=== PATIENT | male | born 1950 | race Caucasian/White ===

== ENCOUNTER → 2017-03-17 | Outpatient (CLI) | payer MEDICARE, BC ==
[~2017-03-17] MED LIST: ALLE25CA OR; ASPI325T OR; AVAP150T OR; CLAR5CHW OR; FISH300C2 OR; HYDR25TA6 OR; LOPI600T OR; MULTIVIT; OMNARIS NASAL SPRAY; PERC5TAB12 PO; PERC5TAB8 OR; PRED5TAB OR; SYMB80AE IN; TAMS0.4C2 PO; VENTAER IN; [UNRECOGNIZED DRUG - OTHER]
[2017-03-17 13:31] LABS: CALCIUM LEVEL 9.1 MG/DL (8.8-10.2); CREATININE FOR GFR 1.29 MG/DL (0.70-1.30); GLOMERULAR FILTRATION RATE 59.5 (>49); POTASSIUM SERUM 4.5 MEQ/L (3.5-5.1)
== END ==
LOC: M SMT 10:05
PROVIDERS: ATTEND Urology
DX: R97.20 Elevated prostate specific antigen [PSA] (principal)
CPT/HCPCS: 36415; 80048; G0463

== ENCOUNTER → 2017-04-27 | Outpatient (CLI) | payer MEDICARE, BC ==
--- NOTE | 2017-04-27 15:20 | REP ---
MULTIPARAMETRIC PROSTATE MRI STUDY WITH PRE AND POST GADOLINIUM ENHANCED IMAGING: HISTORY: Elevated prostate-specific antigen. TECHNIQUE: Using a phased array surface coil, small field of view imaging was acquired using T2-weighted scans in the axial, coronal, and sagittal imaging planes. Small field of view diffusion-weighted sequences are acquired. Small field of view axial T1-weighted scans are acquired dynamically after the intravenous administration of 16 mL of gadolinium. Using a large field of view, the entire pelvis to the level of the aortic bifurcation was imaged using pre-contrast axial T1 and post-contrast axial T1 fat-saturation images. FINDINGS: Image quality is satisfactory although there is some image degradation on the diffusion weighted sequences. There is no MR evidence of pelvic or inguinal adenopathy. No suspicious bone lesion is seen. Seminal vesicles appear symmetrical. Prostate measures 5.2 x 3.7 x 4.0 cm for a total volume of 40 mL. There are findings of benign prostatic hypertrophy. There are three areas of abnormal signal intensity, contrast enhancement and diffusion signal in the prostate identified as regions of interest. First in the left transitional zone extending from the base to the apex is an area of heterogenous low and high signal which demonstrates type 3 enhancement. The area measures 2.6 x 1.1 x 2.6 cm for a total volume of 4.72 mL. Overall level of suspicion is 3 out of 5 with clinically significant cancer equivocal. Second in the right transitional zone extending from the base to the apex is a heterogeneous area of low and high signal on T2 demonstrating type 3 enhancement characteristics. The area measures 2.1 x 1.3 x 2.9 cm for a total volume of 4.93 mL. Overall level of suspicion is 3 out of 5 with clinically significant cancer equivocal. Finally in the peripheral zone bilaterally, in the medial aspect extending from the base to the apex, there are geographic areas of somewhat low signal on T2-weighted images. These areas demonstrate mixed enhancement predominantly type 2. This may represent prostatitis. Overall level of suspicion is 2 out of 5 with clinically significant cancer unlikely to be present. IMPRESSION: Three focal abnormalities seen in the prostate identified as regions of interest in the [employer] software for MR ultrasound fusion utilization. Signed by Meir Delaney MD 04/28/2017 05:52 P
--- NOTE | 2017-04-27 17:12 | REP ---
ORBITS FOR MRI CLEARANCE: 04/27/2017: Findings: Santos and lateral view of the orbits provided. There is no radiopaque/metallic foreign body visible about either orbit. This mucosal thickening in the bilateral maxillary sinuses. There is deviation of nasal septum towards the left. Frontal sinuses were clear. Sphenoid sinuses are clear. Impression: 1. No metallic foreign body about the orbits. The patient cleared for MRI. Bilateral mucosal thickening/air fluid levels in the maxillary sinuses suggesting acute and chronic sinusitis. Signed by Manny Marie MD 04/27/2017 08:14 P
== END ==
LOC: M RAD 11:05
PROVIDERS: ATTEND Urology
DX: R97.20 Elevated prostate specific antigen [PSA] (principal); J34.2 Deviated nasal septum
CPT/HCPCS: 70200; 72197; A9576

== ENCOUNTER → 2017-09-01 | Outpatient (CLI) | payer MEDICARE, BC ==
--- NOTE | 2017-09-01 13:20 | REP ---
Chest x-ray: Two views. History: Cough. Comparison study: October 05, 2012. Findings: The lungs are well inflated and clear. Pleural angles are sharp. No infiltrate is seen. Heart is not enlarged. Pulmonary vasculature is not increased. No bony abnormality is seen. No change from comparison study. Impression: No active disease. Signed by Justino Russell MD 09/01/2017 04:08 P
[2017-09-01 14:33] LABS: BASO % 0.3 % (0.0-1.0); EOS # 0.1 10^3/uL (0.0-0.50); EOS % 1.2 % (0.0-3.0); IMMATURE GRANULOCYTE % 0.4 % (0-0); LYMPH # 0.8 10^3/uL (1.5-4.5); LYMPH % 8.3 % (24.0-44.0); MEAN CORPUSCULAR HEMOGLOBIN 28.3 pg (27.0-33.0); MEAN CORPUSCULAR HGB CONC 32.6 g/dl (32.0-36.5); MEAN CORPUSCULAR VOLUME 86.8 fl (80.0-96.0); MONO # 0.8 10^3/uL (0.0-0.8); MONO % 7.8 % (0.0-5.0); NEUTROPHILS # 8.1 10^3/uL (1.8-7.7); PLATELET COUNT, AUTOMATED 252 10^3/uL (150-450); RED CELL DISTRIBUTION WIDTH 13.1 % (11.5-14.5); WHITE BLOOD COUNT 9.9 10^3/uL (4.0-10.0)
== END ==
LOC: M WUC 11:53
PROVIDERS: ATTEND Physician Assistant
DX: R05 Cough (principal)

== ENCOUNTER → 2018-09-14 | Outpatient (CLI) | payer MEDICARE, BC | LOC: M SMT 13:50 | DX: J82 Pulmonary eosinophilia, not elsewhere classified (principal); R05 Cough | CPT/HCPCS: 71046 ==

== ENCOUNTER → 2018-11-27 | Outpatient (REF) | payer MEDICARE, BC ==
[2018-11-27 17:37] LABS: FOLATE 17.7 NG/ML
== END ==
LOC: M LAB REF 16:39
PROVIDERS: ATTEND Internal Medicine
DX: R41.3 Other amnesia (principal)

== ENCOUNTER → 2019-11-22 | Outpatient (CLI) | payer MEDICARE, BC ==
--- NOTE | 2019-11-22 17:46 | REP ---
Bilateral hand series: Eight views. History: Bilateral hand pain. Pain in the right distal second metacarpal and in the left thumb base. Findings: Five views of the right hand demonstrate overall normal mineralization. There is mild osteoarthritic narrowing and spurring at the first carpometacarpal and first metacarpal phalangeal joint of the right hand. No erosive changes seen. Bones joints and soft tissues are otherwise unremarkable on the right. Left hand views demonstrate overall normal mineralization. There is first carpometacarpal joint osteoarthritis with spurring and joint space narrowing. No erosive changes seen. No acute abnormality. Impression: Osteoarthritic changes in the first carpometacarpal articulations bilaterally. Electronically Signed by Justino Russell MD 11/22/2019 05:38 P
== END ==
LOC: M WUC 16:56
PROVIDERS: ATTEND Physician Assistant
DX: M79.641 Pain in right hand (principal); M79.642 Pain in left hand

== ENCOUNTER → 2020-02-13 | Outpatient (REF) | payer MEDICARE, BC | LOC: M LAB REF 12:07 | PROVIDERS: ATTEND Physician Assistant | DX: R05 Cough (principal); J02.9 Acute pharyngitis, unspecified; Z11.59 Encounter for screening for other viral diseases | CPT/HCPCS: 87081; 87502; U0003 ==

== ENCOUNTER → 2020-03-19 | Outpatient (CLI) | payer MEDICARE, BC ==
--- NOTE | 2020-03-19 14:29 | REP ---
TWO-VIEW CHEST: 03/19/2020 INDICATION: Dyspnea. COMPARISON: 09/14/2018 FINDINGS: The lungs are clear. There is no pleural effusion or pneumothorax. The cardiac silhouette is normal in size. Minimal discoid atelectasis is noted in the left lung base. IMPRESSION: Clear lungs. Electronically Signed by Mauro Berkowitz DO 03/21/2020 08:39 A
== END ==
LOC: M WUC 11:52
PROVIDERS: ATTEND Internal Medicine Pulmonary Disease
DX: J82 Pulmonary eosinophilia, not elsewhere classified (principal)

== ENCOUNTER 2021-02-24 13:07 | Observation (INO) | payer MEDICARE, BC ==
[~2021-02-24] VITALS: Ht 177.8 cm; Wt 81.5 kg
[2021-02-24] MEDS ORDERED: ISOVUE-370 76% 100ML VIAL As Ordered ONE (13:56)
[2021-02-24 14:01] LABS: BASO % 0.5 % (0.0-1.0); EOS # 0.3 10^3/uL (0.0-0.5); EOS % 3.5 % (0.0-3.0); HEMATOCRIT 42.7 % (42.0-52.0); HEMOGLOBIN 13.9 g/dl (13.5-17.5); LYMPH # 1.3 10^3/uL (1.5-5.0); LYMPH % 16.5 % (24.0-44.0); MEAN CORPUSCULAR HEMOGLOBIN 29.2 pg (27.0-33.0); MEAN CORPUSCULAR HGB CONC 32.6 g/dl (32.0-36.5); MEAN CORPUSCULAR VOLUME 89.7 fl (80.0-96.0); MONO # 0.4 10^3/uL (0.0-0.8); MONO % 5.7 % (2.0-8.0); NEUTROPHILS # 5.7 10^3/uL (1.5-8.5); NEUTROPHILS % 73.4 % (36.0-66.0); PLATELET COUNT, AUTOMATED 302 10^3/uL (150-450); RED BLOOD COUNT 4.76 10^6/uL (4.30-6.10); WHITE BLOOD COUNT 7.8 10^3/uL (4.0-10.0)
--- NOTE | 2021-02-24 14:39 | REP ---
INDICATION: CVA. COMPARISON: None. TECHNIQUE: Helical scanning is acquired. 5 mm axial images were reformatted. Coronal MPR images were generated. FINDINGS: Digital preliminary [employer] portal developer radiograph is unremarkable. On bone window settings the bony calvarium is intact. There are mucosal changes in the ethmoid and for maxillary sinuses bilaterally. Vascular calcification is observed in the distal vertebral and distal internal carotid arteries bilaterally. On soft tissue window settings there is generalized volume loss. There is no evidence of intracranial hemorrhage. No mass, extra-axial fluid collection or midline shift is seen. There is focal area of low signal intensity in the anterior limb of the right internal capsule which may be a lacunar in infarct, possibly recent. There is a 2nd focus of low density in the subinsular white matter on the right which similarly could be a small lacunar infarct. Mild small vessel changes are present. IMPRESSION: There is no evidence of intracranial hemorrhage. 2 areas of low density on the right may reflect recent lacunar infarcts, anterior limb of the internal capsule and subinsular cortex respectively. Vascular calcification, generalized volume loss, and small vessel changes are noted.. <Electronically signed by Stanley Russell > 02/24/21 [id number]
--- NOTE | 2021-02-24 14:45 | REP ---
INDICATION: CVA. COMPARISON: None. TECHNIQUE: CT contrast dose: 100 ml of intravenous Isovue 370. CT technique: Helical scanning is acquired. 2 mm axial images are reformatted. Maximal intensity projection and multiplanar re-formation images are generated along with 3-D surface rendered color imaging which is viewed rotational. FINDINGS: The distal vertebral arteries are patent bilaterally. The left distal vertebral artery is quite small compared to the right but no focal high-grade stenosis is seen. The right vertebral artery is heavily calcified at the level of the foramen magnum and may be somewhat narrowed in this location. Basilar artery is tortuous but widely patent. Posterior cerebral and superior cerebellar vessels are unremarkable bilaterally. The carotid siphons are calcified bilaterally left more so than right. There is narrowing of the left internal carotid artery at the level of the calcific plaquing. The left middle and anterior cerebral arteries are intact bilaterally. No vessel cutoff is seen. No evidence of moreno aneurysm or arteriovenous malformation. Dural sinuses are intact. No venous abnormality is noted. IMPRESSION: There is heavy vascular calcification in the carotid siphons bilaterally, left more so than right. Heavy vascular calcification in the distal vertebral artery on the right which is dominant cyst in size over the left. Otherwise negative. <Electronically signed by Stanley Russell > 02/24/21 [id number]
--- NOTE | 2021-02-24 14:47 | REP ---
INDICATION: CVA COMPARISON: None. TECHNIQUE: Contrast enhancement dose is 100 mL of intravenous Isovue 370. Helical scanning is acquired. 2 mm axial images are re-formatted. Coronal and sagittal MPR images are generated. Coronal and sagittal MIP and oblique MPR images are generated. 3D surface rendered images are generated and viewed rotationally. FINDINGS: There is good opacification of the arterial tree. At the level of the arch, there is minimal vascular calcification. The left vertebral artery takes a direct origin from the transverse aorta which is a normal variant. There is some vascular calcification in the innominate. Mild vascular calcification is seen at the origin of the right vertebral artery. The right vertebral artery is larger than the left throughout the vertebral artery course. No vertebral artery stenosis or occlusion is seen. The distal right vertebral artery is heavily calcified at the level of the foramen magnum. The common carotid arteries are widely patent bilaterally. There is calcific plaquing at the origin of the internal carotid on each side mild in degree. No high-grade stenosis is seen. The cervical segments of the ICAs are unremarkable. Curved multiplanar re-formation and 3D surface rendered images show no additional finding. IMPRESSION: Moderate calcific plaquing at the origins of the internal carotid arteries bilaterally. Right dominant vertebrals. No high-grade stenosis or occlusion. <Electronically signed by Stanley Russell > 02/24/21 [id number]
[2021-02-24] MEDS ORDERED: BAYE325T16 PO (15:25)
[2021-02-24] MEDS ORDERED: CLOPIDOGREL 300 MG TAB (PLAVIX) PO STA (15:38)
[2021-02-24] MEDS ORDERED: ASPIRIN 325 MG TAB PO ONE (15:40)
[2021-02-24] MEDS ORDERED: FENO145T7 PO (16:15)
[2021-02-24] MEDS ORDERED: KP F1200 PO (16:15)
[2021-02-24] MEDS ORDERED: ALBU8.5H INH ×2 (16:15)
[2021-02-24] MEDS ORDERED: DESL1TAB3 PO (16:15)
[2021-02-24] MEDS ORDERED: IRBE150T7 PO (16:15)
[2021-02-24] MEDS ORDERED: PRED1TABL PO (16:15)
[2021-02-24] MEDS ORDERED: MUCI120T PO (16:15)
[2021-02-24] MEDS ORDERED: OMNA50SP NARES (16:15)
[2021-02-24] MEDS ORDERED: VITMTA PO (16:15)
[2021-02-24] MEDS ORDERED: EZET10TA21 PO (16:15)
[2021-02-24] MEDS ORDERED: TREL1AER INH (16:15)
--- NOTE | 2021-02-24 16:48 | HPE ---
HISTORY AND PHYSICAL DATE OF ADMISSION: 02/24/2021 CHIEF COMPLAINT: Question transient ischemic attack (TIA). PRIMARY CARE PROVIDER: Dr. 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 He is being admitted for evaluation of possible TIA. Per patient and his , he was having some trouble walking. He felt dizzy and lightheaded. His states that he became quite stressed with this. It had its origin with a severe headache. He then developed some numbness. Emergency department history is that his right arm and leg were numb, and he had trouble lifting them, and he did reportedly have some weakness of his right lower extremity on exam upon presenting to the emergency room. When I discussed the events of today, he described bilateral numbness over the thumb area of both hands. No associated weakness. In any case, he is being admitted for further evaluation. He has no past history of cardiovascular disease nor any coronary artery disease or peripheral arterial disease. He does have vascular risk factors, including hypertension, hyperlipidemia, and age. He has been heaving headaches more frequently recently. Used to have a headache a week. They have been almost daily for the last 2 weeks. Today he had a severe frontal headache preceding the event that brought him to the emergency room. He denies any photophobia, phonophobia, nausea, or vomiting with this. He has no past history of migraines. MEDICAL HISTORY: 1. Hypertension. 2. 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 Mcgarry for a period of time. 3. Renal stones requiring lithotripsy. 4. Diverticulitis requiring a sigmoid resection. 5. At one point with the renal stones he had some decreased renal function/acute kidney injury, but this has resolved. 6. He had had elevated prostate-specific antigens (PSAs) but negative prostate biopsy times two. SURGICAL HISTORY: 1. Left shoulder surgery in 1974. 2. Eye surgery in 1974. 3. Colon resection in 2003. 4. Left inguinal hernia repair in 2013. 5. Extracorporeal shockwave lithotripsy (ESWL), right kidney stone, March 2016. FAMILY HISTORY: Father of kidney failure at 67. Mother had lung cancer and at 63. A sister at 34 of suicide. Son has kidney disease secondary to medications. REVIEW OF SYSTEMS: No photophobia, phonophobia. History of migraine headaches. No rectal bleeding, epistaxis, urinary bleeding, chest pain, shortness of breath, palpitations. MEDICATIONS: - albuterol inhaler as needed - aspirin 325 mg daily - Symbicort 80/4.5 one inhalation twice a day - Benadryl as needed - gemfibrozil 600 mg daily - hydrochlorothiazide 12.5 mg daily - tamsulosin 0.4 mg daily - fish oil capsules - irbesartan 150 mg daily ALLERGIES: None known. SOCIAL HISTORY: He is retired. 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 Is now retired. Does not smoke or drink excessive alcohol. He walks for exercise. PHYSICAL EXAMINATION: Vital signs as listed, his blood pressure is currently 132/64; it was 207/92 on presentation today. Pulse is 69, respirations 18, 100% oxygen saturation on room air. General appearance: Pupils equal, round and reactive to light. Extraocular movements intact. Pharynx benign. Neck Supple. Cranial nerves II-XII intact. No carotid bruits. Lungs clear. Heart regular rate and rhythm without murmur. Abdomen soft, nontender. No masses. No cyanosis, clubbing or edema. Neurologic exam shows that he is alert, oriented, and conversant. There is no strabismus or nystagmus. Neck is supple. Coordination is normal, arms and legs. Strength is normal to biceps, triceps, shipyard laborer, quadriceps, and calves. There is no pronator drift. Sensation is intact to light touch bilaterally and equal bilaterally. I did not test his gait. LABORATORY DATA: Electrolytes unremarkable. Creatinine 1.3. CBC is normal. White count 7.8, hemoglobin 13.9, platelets 302. CT of the head shows two areas of low density, right, that might represent lacunar infarcts, anterior limb of internal capsule and the insular and subinsular cortex, respectively. Few vascular calcifications seen. CT angiogram of the neck shows moderate plaque in the origins of the internal carotid arteries bilaterally. No high-grade stenoses seen. CT angiogram shows heavy vascular calcifications in carotid siphons bilaterally, left more than right. Heavy calcifications in the distal vertebral artery on the right, which is dominant in size. IMPRESSION: 1. Possible transient ischemic attack (TIA). Symptoms he describes to me are different than the symptoms described upon arrival in the emergency room. He now describes them as bilateral and over the radial aspect of both hands. Initial presentation was right-sided numbness and perceived weakness, and emergency room (ER) physician did document some pronator drift on the right upper extremity and weakness, right lower extremity. I think it is prudent to keep him on telemetry overnight and get an MRI of the brain (he has some hardware in his right shoulder and received an MRI of the pelvis 2017 without difficulty) and an echocardiogram. He has already received Plavix and aspirin. We will just continue aspirin at this point. 2. Hypertension. We need to clarify his medications. It has not been done yet. Once that is done, we will continue antihypertensives, looking for some mild permissive hypertension over the next 24-48 hours. 3. History of hyperlipidemia. With is vascular calcifications, he probably should be on a statin. Currently just taking gemfibrozil and fish oil. Will get a lipid panel, start a statin. 4. Hypertension. Clarify his medications and then will order his medications, possibly holding some for some permissive hypertension over the next 24-48 hours. 5. History of eosinophilic pneumonia, previously followed by Dr. Mcgarry. Once that is clarified, we will see if he is still on chronic steroid therapy. If so, this will need to be continued.
[2021-02-24 17:48] LABS: RSV AMPLIFICATION NEGATIVE (NEGATIVE)
[2021-02-24] MEDS ORDERED: ALBUTEROL 90 MCG/ACT 8GM HFA INHALER INH PRN (17:50)
[2021-02-24 18:15] LABS: CHOLESTEROL RISK RATIO 4.22 (<5)
[2021-02-24] MEDS ORDERED: ALBUTEROL 90 MCG/ACT 8GM HFA INHALER INH SCH (20:00)
--- NOTE | 2021-02-24 20:56 | REPVR ---
PROCEDURE INFORMATION: Exam: MR Head Without Contrast Exam date and time: 02/24/2021 8:18 PM Age: 70 years old Clinical indication: Dizziness; Additional info: TIA TECHNIQUE: Imaging protocol: MR of the head without contrast. COMPARISON: CT Head without contrast 02/24/2021 1:58 PM FINDINGS: Brain: Multiple foci of T2 lengthening are demonstrated in the subcortical, periventricular and centrum semiovale white matter consistent with age-related small vessel gliosis. Cerebral ventricles: Normal. No ventriculomegaly. Bones/joints: Unremarkable. Paranasal sinuses: Inflammatory changes demonstrated in the sphenoid, ethmoid, and maxillary sinuses. Mastoid air cells: Normal as visualized. No mastoid effusion. Orbital cavity: Unremarkable. Soft tissues: Unremarkable. IMPRESSION: 1. Multiple foci of T2 lengthening are demonstrated in the subcortical, periventricular and centrum semiovale white matter consistent with age-related small vessel gliosis. 2. Inflammatory changes demonstrated in the sphenoid, ethmoid, and maxillary sinuses. 3. No acute intracranial findings. Electronically signed by: David Restrepo On 02/24/2021 20:55:53 PM
--- NOTE | 2021-02-24 20:59 | REPVR ---
PROCEDURE INFORMATION: Exam: MRA Head Without Contrast; Arteriography Exam date and time: 02/24/2021 8:18 PM Age: 70 years old Clinical indication: Dizziness and giddiness; Additional info: TIA TECHNIQUE: Imaging protocol: Magnetic resonance angiography head without contrast. Exam focused on the arteries. COMPARISON: CT ANGIO HEAD 02/24/2021 1:58 PM FINDINGS: ANTERIOR CIRCULATION: Right internal carotid artery: Intracranial segment is patent with no significant stenosis. No aneurysm. Right middle cerebral artery: No occlusion or significant stenosis. No aneurysm. Right anterior cerebral artery: No occlusion or significant stenosis. No aneurysm. Left internal carotid artery: Intracranial segment is patent with no significant stenosis. No aneurysm. Left middle cerebral artery: No occlusion or significant stenosis. No aneurysm. Left anterior cerebral artery: No occlusion or significant stenosis. No aneurysm. POSTERIOR CIRCULATION: Right vertebral artery: Dominant Right vertebral artery. Left vertebral artery: No occlusion or significant stenosis. No aneurysm. Basilar artery: No occlusion or significant stenosis. No aneurysm. Right posterior cerebral artery: No occlusion or significant stenosis. No aneurysm. Left posterior cerebral artery: No occlusion or significant stenosis. No aneurysm. IMPRESSION: No acute findings. Electronically signed by: David Restrepo On 02/24/2021 20:58:38 PM
[2021-02-24] MEDS ORDERED: ATORVASTATIN 20 MG TAB PO SCH (21:00)
[2021-02-24 21:10] VITALS: BP 168/92
--- NOTE | 2021-02-24 21:38 | ECGEPIP ---
[facility] - ED Test Date: 2021-02-24 Pat Name: RUDOLPH NELSON Department: Room: - Gender: Male Display Manager: : [id number] Requested By: Cam Felix Order Number: [id number] Reading MD: Leeann Keys Measurements Intervals [place] Rate: 65 P: 40 KS: 160 QRS: -27 QRSD: 82 T: 11 QT: 404 QTc: 420 Interpretive Statements Normal sinus rhythm No prior Electronically Signed on 02-24-2021 21:37:48 EDT by Leeann Keys
[2021-02-24 22:44] LABS: CK-MB VALUE MASS 1.7 NG/ML (<3.6); CPK CREATINE PHOSPHOKINASE 149 U/L (39-308); MB/CK RELATIVE INDEX 1.14 (< OR =4); TROPONIN I < 0.02 NG/ML (< 0.10)
[2021-02-25] VITALS: BP 142/80
[2021-02-25 04:00] VITALS: BP 148/80
[2021-02-25 05:22] LABS: HEMATOCRIT 38.1 % (42.0-52.0); HEMOGLOBIN 12.6 g/dl (13.5-17.5); MEAN CORPUSCULAR HEMOGLOBIN 29.4 pg (27.0-33.0); MEAN CORPUSCULAR HGB CONC 33.1 g/dl (32.0-36.5); PLATELET COUNT, AUTOMATED 272 10^3/uL (150-450); RED BLOOD COUNT 4.28 10^6/uL (4.30-6.10); WHITE BLOOD COUNT 6.2 10^3/uL (4.0-10.0)
[2021-02-25 05:45] LABS: BLOOD UREA NITROGEN 14 MG/DL (7-18); CALCIUM LEVEL 9.2 MG/DL (8.8-10.2); CARBON DIOXIDE LEVEL 29 MEQ/L (21-32); CHLORIDE LEVEL 109 MEQ/L (98-107); CK-MB VALUE MASS 1.9 NG/ML (<3.6); CPK CREATINE PHOSPHOKINASE 124 U/L (39-308); CREATININE FOR GFR 1.02 MG/DL (0.70-1.30); GLOMERULAR FILTRATION RATE > 60.0 (>49); GLUCOSE, FASTING 99 MG/DL (70-100); MB/CK RELATIVE INDEX 1.53 (< OR =4); SODIUM LEVEL 141 MEQ/L (136-145); TROPONIN I < 0.02 NG/ML (< 0.10)
[2021-02-25 07:14] VITALS: BP 151/72
[2021-02-25] MEDS ORDERED: ATOR80TA59 PO (08:14)
[2021-02-25] MEDS ORDERED: ENOXAPARIN 40MG/0.4ML SYRINGE (J1650 PER 10MG) SC SCH (09:00)
[2021-02-25] MEDS ORDERED: IRBESARTAN 150MG TAB PO SCH (09:00)
[2021-02-25] MEDS ORDERED: CLOPIDOGREL 75 MG TAB PO SCH (09:00)
[2021-02-25] MEDS ORDERED: ASPIRIN 325 MG TAB PO SCH (09:00)
[2021-02-25] MEDS ORDERED: predniSONE 1 MG TAB PO SCH (09:00)
[2021-02-25 09:04] VITALS: BP 151/72
[2021-02-25 11:20] VITALS: BP 178/82
[2021-02-25 12:00] VITALS: BP 162/78
--- NOTE | 2021-02-25 18:59 | DS.PDOC ---
Discharge Summary General Date of Admission February 24, 2021 at 13:08 Date of Discharge 02/25/2021 Discharge Summary PRIMARY CARE PHYSICIAN: Dr. Wally Funez MD ATTENDING AT TIME OF DISCHARGE: Dr. Tamera Garcia DO DISCHARGE DIAGNOS(E)S: Hypertensive emergency Possible TIA Hyperlipidemia with vascular calcifications History of eosinophilic pneumonia HPI & HOSPITAL COURSE: Patient presented to the emergency room with symptoms concerning for stroke, however they evolved fairly quickly over a matter of hours, and then eventually resolved. Therefore, there is strong suspicion that this may be a TIA. CT angiogram of the head and neck, head CT without contrast, MRI and MRA of the head were all performed and did not show any acute events, but all do demonstrate calcific plaquing. He did have a few brief episodes of bradycardia on telemetry overnight, but overall did not show any other significant events. Symptoms have completely resolved at this time, and the remainder of his investigations do not show any acute etiology. Echocardiogram had not been performed by the time of discharge, but he can have this performed as an outpatient. PHYSICAL EXAMINATION ON DISCHARGE: GENERAL: Awake, alert, oriented 3. He is in no acute distress. CARDIOVASCULAR EXAMINATION: Regular rate and rhythm, with no rubs, gallops, or murmur. RESPIRATORY EXAMINATION: Clear to auscultation bilaterally with no wheezes, rales, or rhonchi. ABDOMINAL EXAMINATION: Soft, nontender, nondistended. Bowel sounds present. EXTREMITIES: No clubbing or edema noted. 2+ pulses in the radial bilaterally. DISPOSITION: Home DISCHARGE INSTRUCTIONS: Follow-up with primary care physician within 7-14 days. Activity as tolerated. Diet as tolerated. If symptoms return, or if you experience worsening of your symptoms, please call your doctor or return to the emergency department. DISCHARGE MEDICATIONS: Recommend that he continue taking all the same home medications, the only new medication is being prescribed as a atorvastatin 80 mg daily. The pharmacy that we have in our system is [facility], but the patient reports that he has not uses pharmacy in years. He uses a [facility] mail order pharmacy, and I tried for approximately 30 minutes to search for this pharmacy and every manner possible in our system, and it apparently is not there, therefore this will need to be ordered by his PCP as an outpatient. He is already on Zetia, fenofibrate, and fish oil, but in light of his recent event, would strongly recommend switching him over to a statin if it is not contraindicated for some reason unknown to me. ITEMS THAT NEED OUTPATIENT FOLLOWUP: Recommend outpatient echocardiogram with bubble study Vital Signs/I&Os Vital Signs Date Time Temp Pulse Resp B/P (MAP) Pulse Ox O2 Delivery O2 Flow Rate FiO2 02/25/21 12:00 97.4 58 18 162/78 (106) 99 Room Air I&O- Last 24 Hours up to 6 AM0 02/25/21 06:00 Intake Total 0 ml Output Total 300 ml Balance -300 ml Laboratory Data Labs 24H Laboratory Tests 2 02/24/21 22:03: Total Creatine Kinase 149, Creatine Kinase MB 1.7, Creatine Kinase MB Relative Index 1.14, Troponin I < 0.02 02/25/21 04:42: Total Creatine Kinase 124, Creatine Kinase MB 1.9, Creatine Kinase MB Relative Index 1.53, Troponin I < 0.02, Nucleated Red Blood Cells % (auto) 0.0, Anion Gap 3L, Glomerular Filtration Rate > 60.0, Calcium Level 9.2 CBC/BMP Laboratory Tests 02/25/21 04:42 Discharge Medications Scheduled Albuterol Sulfate (Albuterol Sulfate Hfa) 8.5 Gm Hfa.aer.ad, 2 PUFFS INH DAILY, (Reported) Aspirin (Aspirin) 325 Mg Tablet, 325 MG PO QHS, (Reported) Atorvastatin Calcium (Atorvastatin Calcium) 80 Mg Tablet, 1 TAB PO DAILY Ciclesonide (Omnaris) 50 Mcg/Act Reading.pump, 2 SPRAYS NARES QHS, (Reported) Desloratadine (Desloratadine) 5 Mg Tablet, 5 MG PO DAILY, (Reported) Ezetimibe (Ezetimibe) 10 Mg Tablet, 10 MG PO DAILY, (Reported) Fenofibrate Nanocrystallized (Fenofibrate) 145 Mg Tablet, 145 MG PO DAILY, (Re ported) Fish Oil/Dha/Epa (Fish Oil 1,200 mg Fish Oil) 1 Each Capsule, 2,400 MG PO DAILY, (Reported) Fluticasone/Umeclidin/Vilanter (Trelegy Ellipta 100-62.5-25) 1 Each Blst.w.dev, 1 PUFF INH DAILY, (Reported) Guaifenesin/Pseudoephedrne HCl (Mucinex D ER 1,200-120 mg Tab) 1 Each Tab.er.12h, 1 TAB PO BID, (Reported) Irbesartan (Irbesartan) 150 Mg Tablet, 150 MG PO DAILY, (Reported) Multivitamins (Thera M Plus Tablet) 1 Each Tablet, 1 TAB PO QHS, (Reported) Prednisone (Prednisone) 1 Mg Tablet, 1 MG PO DAILY, (Reported) Scheduled PRN Albuterol Sulfate (Albuterol Sulfate Hfa) 8.5 Gm Hfa.aer.ad, 2 PUFFS INH TID PRN for SHORTNESS OF BREATH, (Reported) Allergies Coded Allergies: No Known Allergies (Verified , 04/26/04) TAMERA GARCIA DO February 25, 2021 18:59
== END 2021-02-25 12:20 | disposition home or self-care (01) ==
LOC: M ED 13:07 → M ED INP 13:08 → ENRESERV 19:44 → M PCU 21:05
PROVIDERS: ADMIT Internal Medicine; ATTEND Internal Medicine
DX: I16.0 Hypertensive urgency (principal); G45.9 Transient cerebral ischemic attack, unspecified; E78.49 Other hyperlipidemia; I10 Essential (primary) hypertension; Z79.82 Long term (current) use of aspirin; Z79.52 Long term (current) use of systemic steroids; Z79.899 Other long term (current) drug therapy
CPT/HCPCS: 36415; 70450; 70496; 70498; 70544; 70551; 80047; 80048; 80061; 82550; 82553; 84484; 85025; 85027; 87631; 93005; 93041; 94640; 94760; 99285; G0378; J7512; Q9967

== ENCOUNTER → 2021-09-22 | Outpatient (REF) | payer MEDICARE, BC ==
[~2021-09-22] MED LIST changes: +ALBU8.5H INH; +ATOR80TA59 PO; +BAYE325T16 PO; +DESL1TAB3 PO; +EZET10TA21 PO; +FENO145T7 PO; +IRBE150T7 PO; +KP F1200 PO; +MUCI120T PO; +OMNA50SP NARES; +PRED1TABL PO; +TREL1AER INH; +VITMTA PO
[2021-09-22 18:03] LABS: FOLATE 17.2 NG/ML (>5.4)
== END ==
LOC: M LAB REF 16:36
PROVIDERS: ATTEND Physician Assistant Medical
DX: R41.3 Other amnesia (principal)

== ENCOUNTER → 2021-09-22 | Outpatient (CLI) | payer MEDICARE, BC ==
--- NOTE | 2021-09-22 15:45 | REP ---
INDICATION: OTHER PULMONARY EOSINIPHILIA COMPARISON: 03/19/2020 TECHNIQUE: PA and lateral. FINDINGS: The mediastinum and cardiac silhouette are normal. The lung chamberlain are clear and without acute consolidation, effusion, or pneumothorax. The skeletal structures are intact and normal. IMPRESSION: No acute cardiopulmonary process. <Electronically signed by Horace Escoto > 09/22/21 [id number]
== END ==
LOC: M WUC 15:31
PROVIDERS: ATTEND Internal Medicine Pulmonary Disease
DX: J82.89 Other pulmonary eosinophilia, not elsewhere classified (principal)

== ENCOUNTER → 2021-10-09 | Outpatient (REF) | payer MEDICARE, BC | LOC: M LAB REF 16:44 | PROVIDERS: ATTEND Internal Medicine | DX: F03.90 Unspecified dementia, unspecified severity, without behavioral disturbance, psychotic disturbance, mood disturbance, and anxiety (principal) ==

== ENCOUNTER → 2022-09-15 | Outpatient (CLI) | payer MEDICARE, BC | LOC: M PLAIMG 09:54 | PROVIDERS: ATTEND Internal Medicine Pulmonary Disease | DX: J82.89 Other pulmonary eosinophilia, not elsewhere classified (principal) ==

== ENCOUNTER 2024-11-20 09:01 | Inpatient (IN) | payer MEDICARE ==
[2024-11-20] VITALS (7 sets, daily range): BP systolic 101–129; BP diastolic 58–61; TEMP 97.8–98.9; O2SAT 93–98
[~2024-11-20] VITALS: Ht 175.3 cm; Wt 77.8 kg
[~2024-11-20 09:01] MED LIST changes: +IRBE150T27 PO; -IRBE150T7 PO
[2024-11-20] MEDS: IPRATROPIUM 0.5MG/ALBUTEROL 2.5MG INH SOL UD 3ML (DUONEB) NEB PRN (09:31)
[2024-11-20 09:33] LABS: ABG BASE EXCESS 0.6 (-2.0-2.0); ABG HCO3 22.9 MMOL/L (22.0-26.0); ABG O2 SATURATION 93.9 % (95.0-99.0); ABG PARTIAL PRESSURE CO2 29.8 mmHg (35.0-45.0); ABG PARTIAL PRESSURE O2 68.7 mmHg (75.0-100.0); ABG TOTAL CO2 23.8 MMOL/L (23.0-31.0); ABG pH (ARTERIAL) 7.504 UNITS (7.350-7.450)
[2024-11-20 09:59] LABS: BASO % 0.3 % (0.0-1.0); HEMATOCRIT 33.6 % (42.0-52.0); HEMOGLOBIN 11.7 g/dl (13.5-17.5); LYMPH # 0.6 10^3/uL (1.5-5.0); MEAN CORPUSCULAR HEMOGLOBIN 29.9 pg (27.0-33.0); MEAN CORPUSCULAR HGB CONC 34.8 g/dl (32.0-36.5); MEAN CORPUSCULAR VOLUME 85.9 fl (80.0-96.0); MONO # 0.6 10^3/uL (0.0-0.8); MONO % 7.1 % (2.0-8.0); NEUTROPHILS # 6.7 10^3/uL (1.5-8.5); NEUTROPHILS % 83.8 % (36.0-66.0); PLATELET COUNT, AUTOMATED 253 10^3/uL (150-450); RED BLOOD COUNT 3.91 10^6/uL (4.30-6.10)
[2024-11-20] MEDS: NS (Normal Saline) 0.9% 1,000 ML IV ONE (10:01)
[2024-11-20] MEDS: dexAMETHasone 20MG/5ML VIAL IV ONE (10:01)
[2024-11-20] MEDS: PIPERACILLIN/TAZOBACTAM SOD 4.5 GM in DEXTROSE 5% (D5W) ADV/MINI-BAG 50 ML IV ONE (10:01)
[2024-11-20 10:34] LABS: ALBUMIN 2.4 G/DL (3.2-5.2); BILIRUBIN,DIRECT 0.6 MG/DL (<0.4); BILIRUBIN,TOTAL 1.6 MG/DL (0.3-1.2); CALCIUM LEVEL 8.3 MG/DL (8.3-10.6); CREATININE FOR GFR 1.37 MG/DL (0.70-1.30); GLOMERULAR FILTRATION RATE 54.4 (>42); POTASSIUM SERUM 3.6 MMOL/L (3.5-5.1); TOTAL PROTEIN 5.5 G/DL (5.7-8.2)
[2024-11-20] MEDS ORDERED: ISOVUE-370 76% 100ML VIAL As Ordered ONE (11:10)
[2024-11-20] MEDS: IPRATROPIUM 0.5MG/ALBUTEROL 2.5MG INH SOL UD 3ML (DUONEB) NEB SCH (11:36)
[2024-11-20] MEDS: ACETAMINOPHEN *IV* 1,000 MG in IV 1 EA IV ONE (12:11)
[2024-11-20] MEDS ORDERED: ATOR1TAB19 PO (12:14)
[2024-11-20] MEDS ORDERED: THERTAB52 PO (12:17)
[2024-11-20] MEDS ORDERED: EQL400CA9 PO (12:18)
[2024-11-20] MEDS ORDERED: OLAN2.5T53 PO (12:18)
[2024-11-20] MEDS ORDERED: MAGN400T35 PO (12:19)
[2024-11-20] MEDS ORDERED: GLUCTAB64 PO (12:20)
[2024-11-20] MEDS ORDERED: HOME MED LIST COMPLETE! XX SCH (12:25)
[2024-11-20] MEDS: LR 1,000 ML IV ONE ×3 (12:36→14:42)
[2024-11-20] MEDS: HYDROCORTISONE 100MG/2ML VIAL IV SCH (13:46)
[2024-11-20] MEDS ORDERED: LR 1,000 ML IV ONE (14:40)
[2024-11-20] MEDS: IPRATROPIUM 0.02% SOLN 0.5MG 2.5ML NEB INH SCH (15:29)
[2024-11-20] MEDS: LEVALBUTEROL 1.25MG 0.5ML CONCENTRATE NEB INH SCH (15:30)
[2024-11-20] MEDS: LR 1,000 ML IV SCH (15:49)
[2024-11-20] MEDS: DOXYCYCLINE HYCLATE 100MG TABLET PO SCH (16:26)
[2024-11-20] MEDS: MIDODRINE 5 MG TAB PO ONE (16:27)
[2024-11-20] MEDS: PIPERACILLIN/TAZOBACTAM SOD 4.5 GM in DEXTROSE 5% (D5W) ADV/MINI-BAG 50 ML IV SCH (16:27)
[2024-11-20] MEDS: guaiFENesin ER TABLET 600 MG TAB PO SCH (16:27)
[2024-11-21] VITALS (8 sets, daily range): BP systolic 118–155; BP diastolic 57–71; TEMP 97.3–98.5; O2SAT 92–97
[2024-11-21 06:18] LABS: BASO % 0.1 % (0.0-1.0); HEMATOCRIT 28.9 % (42.0-52.0); HEMOGLOBIN 9.9 g/dl (13.5-17.5); LYMPH # 0.6 10^3/uL (1.5-5.0); LYMPH % 6.7 % (24.0-44.0); MEAN CORPUSCULAR HEMOGLOBIN 29.6 pg (27.0-33.0); MEAN CORPUSCULAR HGB CONC 34.3 g/dl (32.0-36.5); MEAN CORPUSCULAR VOLUME 86.5 fl (80.0-96.0); MONO # 0.4 10^3/uL (0.0-0.8); MONO % 4.6 % (2.0-8.0); NEUTROPHILS # 7.2 10^3/uL (1.5-8.5); NEUTROPHILS % 87.3 % (36.0-66.0); PLATELET COUNT, AUTOMATED 230 10^3/uL (150-450); RED BLOOD COUNT 3.34 10^6/uL (4.30-6.10); WHITE BLOOD COUNT 8.2 10^3/uL (4.0-10.0)
[2024-11-21 06:36] LABS: BLOOD UREA NITROGEN 35 MG/DL (9-23); CALCIUM LEVEL 7.6 MG/DL (8.3-10.6); CARBON DIOXIDE LEVEL 23 MMOL/L (20-31); CHLORIDE LEVEL 104 MMOL/L (98-107); CREATININE FOR GFR 1.13 MG/DL (0.70-1.30); GLOMERULAR FILTRATION RATE > 60.0 (>42); GLUCOSE, FASTING 211 MG/DL (74-106); POTASSIUM SERUM 3.6 MMOL/L (3.5-5.1); SODIUM LEVEL 138 MMOL/L (136-145)
[2024-11-21 11:20] LABS: PROCALCITONIN 4.77 ng/ml
[2024-11-21] MEDS: HYDROCORTISONE 100MG/2ML VIAL IV SCH (14:01)
[2024-11-22 03:34] VITALS: BP 151/71; TEMP 98.6; O2SAT 93
[2024-11-22 07:26] LABS: BASO % 0.2 % (0.0-1.0); HEMATOCRIT 29.9 % (42.0-52.0); HEMOGLOBIN 10.4 g/dl (13.5-17.5); LYMPH # 0.9 10^3/uL (1.5-5.0); LYMPH % 7.2 % (24.0-44.0); MEAN CORPUSCULAR HEMOGLOBIN 29.4 pg (27.0-33.0); MEAN CORPUSCULAR HGB CONC 34.8 g/dl (32.0-36.5); MEAN CORPUSCULAR VOLUME 84.5 fl (80.0-96.0); MONO # 0.7 10^3/uL (0.0-0.8); MONO % 5.7 % (2.0-8.0); NEUTROPHILS # 11.1 10^3/uL (1.5-8.5); NEUTROPHILS % 84.8 % (36.0-66.0); PLATELET COUNT, AUTOMATED 320 10^3/uL (150-450); RED BLOOD COUNT 3.54 10^6/uL (4.30-6.10)
[2024-11-22 07:39] VITALS: BP 126/63; TEMP 98; O2SAT 90
[2024-11-22 07:50] LABS: BLOOD UREA NITROGEN 22 MG/DL (9-23); CARBON DIOXIDE LEVEL 25 MMOL/L (20-31); CHLORIDE LEVEL 108 MMOL/L (98-107); CREATININE FOR GFR 0.86 MG/DL (0.70-1.30); GLOMERULAR FILTRATION RATE > 60.0 (>42); GLUCOSE, FASTING 133 MG/DL (74-106); POTASSIUM SERUM 3.7 MMOL/L (3.5-5.1); SODIUM LEVEL 143 MMOL/L (136-145)
[2024-11-22 12:00] VITALS: BP 130/62; TEMP 97.6; O2SAT 94
[2024-11-22] MEDS: OLANZapine 2.5MG TABLET PO ONE (13:38)
[2024-11-22] MEDS: cefTRIAXone SOD 2 GM in DEXTROSE 5% (D5W) ADV/MINI-BAG 50 ML IV SCH (17:42)
[2024-11-22] MEDS: HYDROCORTISONE 100MG/2ML VIAL IV SCH (17:42)
[2024-11-22 20:00] VITALS: BP 148/70; TEMP 99; O2SAT 90
[2024-11-22] MEDS: MAGNESIUM OXIDE 400MG TAB (MAG-OX) PO SCH (20:53)
[2024-11-22 23:35] VITALS: BP 143/65; TEMP 98.2; O2SAT 91
[2024-11-23 00:12] VITALS: BP 113/73; TEMP 98.1; O2SAT 92
[2024-11-23 04:18] VITALS: BP 127/70; TEMP 98.2; O2SAT 91
[2024-11-23] MEDS: HYDROCORTISONE 100MG/2ML VIAL IV SCH (05:37)
[2024-11-23 06:23] LABS: BASO % 0.2 % (0.0-1.0); EOS % 0.2 % (0.0-3.0); HEMATOCRIT 30.8 % (42.0-52.0); HEMOGLOBIN 10.3 g/dl (13.5-17.5); LYMPH # 1.8 10^3/uL (1.5-5.0); LYMPH % 15.8 % (24.0-44.0); MEAN CORPUSCULAR HGB CONC 33.4 g/dl (32.0-36.5); MEAN CORPUSCULAR VOLUME 86.8 fl (80.0-96.0); MONO # 0.8 10^3/uL (0.0-0.8); MONO % 6.9 % (2.0-8.0); NEUTROPHILS # 8.8 10^3/uL (1.5-8.5); NEUTROPHILS % 74.8 % (36.0-66.0); PLATELET COUNT, AUTOMATED 325 10^3/uL (150-450); RED BLOOD COUNT 3.55 10^6/uL (4.30-6.10); WHITE BLOOD COUNT 11.7 10^3/uL (4.0-10.0)
[2024-11-23 06:51] LABS: BLOOD UREA NITROGEN 20 MG/DL (9-23); CALCIUM LEVEL 8.3 MG/DL (8.3-10.6); CARBON DIOXIDE LEVEL 26 MMOL/L (20-31); CHLORIDE LEVEL 109 MMOL/L (98-107); CREATININE FOR GFR 0.89 MG/DL (0.70-1.30); GLOMERULAR FILTRATION RATE > 60.0 (>42); GLUCOSE, FASTING 99 MG/DL (74-106); POTASSIUM SERUM 3.8 MMOL/L (3.5-5.1); SODIUM LEVEL 144 MMOL/L (136-145)
[2024-11-23] MEDS: ATORVASTATIN 10 MG TAB PO SCH (09:49)
[2024-11-23 12:00] VITALS: BP 136/72; TEMP 97.6; O2SAT 90
[2024-11-23] MEDS: LEVALBUTEROL 1.25MG 0.5ML CONCENTRATE NEB INH SCH (20:04)
[2024-11-23] MEDS: IPRATROPIUM 0.02% SOLN 0.5MG 2.5ML NEB INH SCH (20:04)
[2024-11-23 21:12] VITALS: BP 141/72; TEMP 99; O2SAT 92
[2024-11-23] MEDS: RAMELTEON 8 MG TAB (ROZEREM) PO SCH (21:22)
[2024-11-23] MEDS: OLANZapine 2.5MG TABLET PO SCH (21:22)
[2024-11-23] MEDS: HALOPERIDOL LACTATE 5MG/ML VIAL IV STA (23:50)
[2024-11-23] MEDS: diphenhydrAMINE 50MG/ML VIAL IV STA (23:50)
[2024-11-24 04:00] VITALS: BP 133/62; TEMP 97.9; O2SAT 99
[2024-11-24] MEDS ORDERED: HYDROCORTISONE 100MG/2ML VIAL IV SCH (06:00)
[2024-11-24 06:09] LABS: BASO % 0.3 % (0.0-1.0); EOS # 0.1 10^3/uL (0.0-0.5); EOS % 1.1 % (0.0-3.0); HEMATOCRIT 33.3 % (42.0-52.0); HEMOGLOBIN 10.8 g/dl (13.5-17.5); LYMPH # 1.8 10^3/uL (1.5-5.0); MEAN CORPUSCULAR HGB CONC 32.4 g/dl (32.0-36.5); MEAN CORPUSCULAR VOLUME 89.5 fl (80.0-96.0); MONO # 0.6 10^3/uL (0.0-0.8); MONO % 5.5 % (2.0-8.0); NEUTROPHILS # 8.8 10^3/uL (1.5-8.5); NEUTROPHILS % 75.4 % (36.0-66.0); PLATELET COUNT, AUTOMATED 318 10^3/uL (150-450); RED BLOOD COUNT 3.72 10^6/uL (4.30-6.10); WHITE BLOOD COUNT 11.7 10^3/uL (4.0-10.0)
[2024-11-24 06:41] LABS: BLOOD UREA NITROGEN 17 MG/DL (9-23); CALCIUM LEVEL 7.8 MG/DL (8.3-10.6); CARBON DIOXIDE LEVEL 27 MMOL/L (20-31); CHLORIDE LEVEL 108 MMOL/L (98-107); CREATININE FOR GFR 0.88 MG/DL (0.70-1.30); GLOMERULAR FILTRATION RATE > 60.0 (>42); GLUCOSE, FASTING 83 MG/DL (74-106); POTASSIUM SERUM 3.7 MMOL/L (3.5-5.1); SODIUM LEVEL 144 MMOL/L (136-145)
[2024-11-24 06:47] LABS: PROCALCITONIN 0.65 ng/ml
[2024-11-24] MEDS ORDERED: TALK1KIT MC (09:32)
[2024-11-24] MEDS ORDERED: PRED5PAK PO (09:32)
[2024-11-24] MEDS ORDERED: DOXY-440 PO (09:32)
[2024-11-24] MEDS ORDERED: CEFD1CAP9 PO (09:32)
[2024-11-24] MEDS ORDERED: BACI1CAP PO (09:32)
[2024-11-24] MEDS: predniSONE 10MG TAB PO SCH (10:19)
[2024-11-26] MEDS ORDERED: predniSONE 1 MG TAB PO SCH (09:00)
[2024-11-26 21:18] LABS: URINE STREP PNEUMONIAE ANTIGEN DETECTED (NOT DETECT)
[2024-11-30] MEDS ORDERED: predniSONE 1 MG TAB PO SCH (09:00)
== END 2024-11-24 12:14 | disposition home health service (06) | DRG 871 ==
LOC: M ED 09:01 → EEVIPCON 12:08 → M ED INP 12:08 → M PCU 17:22 → M MSPAV 11-23 00:03
PROVIDERS: ADMIT General Practice; ATTEND General Practice
PROC: B246ZZZ Ultrasonography of Right and Left Heart (ICD-10-PCS; principal; 2024-11-20)
DX: A41.9 Sepsis, unspecified organism (principal); J96.01 Acute respiratory failure with hypoxia; J12.1 Respiratory syncytial virus pneumonia; N17.9 Acute kidney failure, unspecified; D84.9 Immunodeficiency, unspecified; E27.40 Unspecified adrenocortical insufficiency; F03.90 Unspecified dementia, unspecified severity, without behavioral disturbance, psychotic disturbance, mood disturbance, and anxiety; I10 Essential (primary) hypertension; R65.20 Severe sepsis without septic shock; E80.6 Other disorders of bilirubin metabolism; E78.5 Hyperlipidemia, unspecified; R74.01 Elevation of levels of liver transaminase levels; D64.9 Anemia, unspecified; E88.09 Other disorders of plasma-protein metabolism, not elsewhere classified; Z87.891 Personal history of nicotine dependence; Z79.899 Other long term (current) drug therapy; Z86.73 Personal history of transient ischemic attack (TIA), and cerebral infarction without residual deficits; Z79.52 Long term (current) use of systemic steroids; Z90.49 Acquired absence of other specified parts of digestive tract

== ENCOUNTER → 2024-12-17 | Outpatient (CLI) | payer MEDICARE ==
[~2024-12-17] MED LIST changes: +ATOR1TAB19 PO; +BACI1CAP PO; +CEFD1CAP9 PO; +DOXY-440 PO; +EQL400CA9 PO; +GLUCTAB64 PO; +MAGN400T35 PO; +OLAN2.5T53 PO; +PRED5PAK PO; +TALK1KIT MC; +THERTAB52 PO
== END ==
LOC: M PLAIMG 10:43
PROVIDERS: ATTEND Internal Medicine Pulmonary Disease
DX: J82.89 Other pulmonary eosinophilia, not elsewhere classified (principal)